=== PATIENT | male | born 1995 | race Caucasian/White ===

== ENCOUNTER 2019-11-24 16:09 | Emergency (ER) | payer BC, SELFPAY ==
[2019-11-24 16:13] VITALS: BP 131/95; PULSE 65; RESP 16; TEMP 36.9
--- NOTE | 2019-11-24 16:34 | ED.GENADULT ---
HPI - General Adult General Chief complaint: Extremity Injury, Lower Stated complaint: foot laceration Time Seen by Provider: 11/24/19 16:11 Source: patient Mode of arrival: ambulatory Limitations: no limitations History of Present Illness HPI narrative: Patient is a 24-year-old male who presents to emergency department for evaluation of laceration to the fourth and fifth digits of the foot that occurred just prior to arrival cut with sheet metal patient notes mild aching pain denies radicular symptoms or paresthesias or any other complaints patient is unsure as to tetanus status Related Data Home Medications Medication Instructions Recorded Confirmed No Home Medications 11/24/19 11/24/19 Allergies Allergy/AdvReac Type Severity Reaction Status Date / Time No Known Allergies Allergy Mild Unverified 09/13/08 20:31 Review of Systems Review of Systems: All systems reviewed & are unremarkable except as noted in HPI and below PMFSH Social History Social History (Updated 11/24/19 @ 16:35 by Kam Nichols PA-C) Smoking status: Never smoker Exam Narrative: Exam Narrative: GENERAL: Well-appearing, well-nourished, and in no acute distress. HEAD: Normocephalic, atraumatic. EXTREMITIES: Normal range of motion. No edema. SKIN: Warm, dry, no rash. Linear half centimeter laceration over the fourth digit left foot 1 cm linear half centimeter laceration over the fifth digit of the left foot both are over the dorsal surface NEURO: No focal deficits. Alert and oriented x3. Neurovascularly intact PSYCH: Normal mood and affect. Course Course Emergency Course: Patient in the room in no distress aware of case findings treatment plan and diagnosis Vital Signs Vital signs: Vital Signs Temperature 98.4 F 11/24/19 16:13 Pulse Rate 65 11/24/19 16:13 Respiratory Rate 16 11/24/19 16:13 Blood Pressure 131/95 H 11/24/19 16:13 Temperature 98.4 F 11/24/19 16:13 Pulse Rate 65 11/24/19 16:13 Respiratory Rate 16 11/24/19 16:13 Blood Pressure 131/95 H 11/24/19 16:13 Procedures Laceration Laceration 1: Date: 11/24/19 Time: 17:43 Site: lower extremity Size (cm): 0.5 Description: linear Depth: simple, single layer Local Anesthetic: lidocaine 1% Pre-repair: wound explored and irrigated ====== Skin Level ====== Skin layer closed with: vicryl Size (cm): 5-0 Number of sutures: 1 ====== Subcutaneous Layer ====== ====== Muscle Layer ====== ====== Tendon Layer ====== Laceration 2: Date: 11/24/19 Time: 17:44 Site: lower extremity Size (cm): 0.5 Description: linear Depth: simple, single layer Local Anesthetic: lidocaine 1% Pre-repair: wound explored and irrigated ====== Skin Level ====== Skin layer closed with: vicryl Size (cm): 5-0 Number of sutures: 1 ====== Subcutaneous Layer ====== ====== Muscle Layer ====== ====== Tendon Layer ====== Medical Decision Making MDM Narrative Medical decision making narrative: Patients injury or pain is consistent with musculoskeletal etiology. No signs of neurological or vascular compromise on exam. Compartments and tisues are soft without signs of compartment syndrome. Pain is felt appropriate for further evaluation on an outpatient basis. Vital Signs Vital Signs: Vital Signs Temperature 98.4 F 11/24/19 16:13 Pulse Rate 65 11/24/19 16:13 Respiratory Rate 16 11/24/19 16:13 Blood Pressure 131/95 H 11/24/19 16:13 Temperature 98.4 F 11/24/19 16:13 Pulse Rate 65 11/24/19 16:13 Respiratory Rate 16 11/24/19 16:13 Blood Pressure 131/95 H 11/24/19 16:13 Discharge Plan Discharge Clinical Impression: Laceration of toe Patient Disposition: Home, Self-Care Condition: Stable Instructions: Antibiotic Form, Laceration (ED) Additional Instruc
[2019-11-24] MEDS: TETANUS,DIPHTHERIA,AC PERTUSSIS ADULT (0.5 ML) BOOSTRIX IM (17:07)
[2019-11-24] MEDS: LIDOCAINE HCL 1% LOCAL INJ 20 ML VIAL (17:46)
== END 2019-11-24 17:52 | disposition home or self-care (01) ==
PROVIDERS: Emergency Provider Emergency Medicine
DX: S91.115A Laceration without foreign body of left lesser toe(s) without damage to nail, initial encounter (principal); Z23 Encounter for immunization
CPT/HCPCS: 12001; 90471; 90715; 99282